=== PATIENT | female | born 1945 | race Caucasian/White ===

== ENCOUNTER 2016-11-26 08:39 | Day surgery (SDC) | payer MEDICARE, OTHER ==
[2016-11-25 08:46] VITALS: BMI 27.4
[~2016-11-26 08:39] MED LIST: HEPARIN-NS 5,000 UNITS/500 ML 5,000 UNIT/500 ML BAG IV ONE; ceFAZolin IV 1 gm in Dextrose 1 GM/50 ML BAG IVPB ONE
[2016-11-26] MEDS ORDERED: Etomidate 20 mg/10ml Inj IV ONE (10:07)
[2016-11-26] MEDS ORDERED: HYDROmorphone 0.5 mg/0.5 ml ISec IVP PRN (10:57)
[2016-11-26] MEDS ORDERED: Lactated Ringer's 1,000 ML IV SCH (11:00)
--- NOTE | 2016-11-26 11:39 | PCM.SURG1 ---
Surgeon's Initial Post Op Note - Surgeon's Notes Surgeon: Jonnathan Wheel Worker: Jina PGY2 Type of Anesthesia: General LMA Pre-Operative Diagnosis: L radial artery aneurysm Operative Findings: anueurysm Post-Operative Diagnosis: same Operation Performed: Ligation and excision of L radial artery aneurysm Specimen/Specimens Removed: aneurysm Estimated Blood Loss: EBL {In ML}: 30 Blood Products Given: N/A Drains Used: No Drains Post-Op Condition: Good Date of Surgery/Procedure: 11/26/16 Time of Surgery/Procedure: 11:39
[2016-11-26 14:19] VITALS: BP 130/75; PULSE 61; RESP 16; TEMP 97.5; O2SAT 95
== END 2016-11-26 13:28 | disposition home or self-care (01) ==
LOC: C.SDS 08:39
PROVIDERS: ATTEND Surgery Vascular Surgery
DX: I72.1 Aneurysm of artery of upper extremity (principal)
CPT/HCPCS: 35045; 88305; J0690; J1170; J2001; J2405; J3010; J7030

== ENCOUNTER 2018-06-15 11:30 | Outpatient (CLI) | payer MEDICARE, OTHER | END 2018-06-15 11:31 | disposition home or self-care (01) | LOC: C.MAMMO 11:31 | DX: Z12.31 Encounter for screening mammogram for malignant neoplasm of breast (principal) ==

== ENCOUNTER 2018-08-25 07:52 | Outpatient (CLI) | payer MEDICARE, OTHER | END 2018-08-25 07:53 | disposition home or self-care (01) | LOC: C.CARD 07:52 ==